=== PATIENT | female | born 1980 | race Two or more races ===

== ENCOUNTER → 2017-11-17 | Outpatient (CLI) | payer OTHER ==
[2017-11-17 09:30] LABS: ESTRADIOL 155.7 PG/ML
[2017-11-17 09:30] LABS: PROGESTERONE 59.1 NG/ML
== END ==
LOC: M LAB 08:20
DX: N97.9 Female infertility, unspecified (principal)

== ENCOUNTER → 2017-11-24 | Outpatient (CLI) | payer OTHER ==
[2017-11-24 09:25] LABS: HCG, SERUM QUANTITATIVE < 1.0 MIU/ML
[2017-11-24 09:36] LABS: PROGESTERONE 20.5 NG/ML
== END ==
LOC: M LAB 08:12
DX: Z31.41 Encounter for fertility testing (principal)
CPT/HCPCS: 84702

== ENCOUNTER → 2017-12-30 | Outpatient (CLI) | payer OTHER ==
[2017-12-30 09:55] LABS: PROGESTERONE < 0.2 NG/ML
[2017-12-30 09:56] LABS: ESTRADIOL 247.8 PG/ML; LUTEINIZING HORMONE 2.3 mIU/mL
== END ==
LOC: M RAD 08:26
DX: N97.9 Female infertility, unspecified (principal)

== ENCOUNTER → 2018-01-04 | Outpatient (CLI) | payer OTHER ==
[2018-01-04 10:56] LABS: PROGESTERONE 0.3 NG/ML
[2018-01-04 10:56] LABS: LUTEINIZING HORMONE 0.8 mIU/mL
[2018-01-04 10:58] LABS: ESTRADIOL 1059.2 PG/ML
== END ==
LOC: M LAB 07:15
DX: N97.9 Female infertility, unspecified (principal)

== ENCOUNTER → 2018-01-13 | Outpatient (CLI) | payer OTHER ==
[2018-01-13 10:56] LABS: ESTRADIOL 511.2 PG/ML; LUTEINIZING HORMONE 1.4 mIU/mL
[2018-01-13 11:43] LABS: PROGESTERONE 80.3 NG/ML
== END ==
LOC: M LAB 07:48
DX: E28.9 Ovarian dysfunction, unspecified (principal)
CPT/HCPCS: 83002

== ENCOUNTER → 2018-01-20 | Outpatient (CLI) | payer OTHER ==
[2018-01-20 09:43] LABS: LUTEINIZING HORMONE 5.3 mIU/mL
[2018-01-20 09:45] LABS: ESTRADIOL 32.1 PG/ML
[2018-01-20 13:47] LABS: HCG, SERUM QUANTITATIVE < 1.0 MIU/ML
== END ==
LOC: M LAB 08:48
DX: E28.9 Ovarian dysfunction, unspecified (principal)

== ENCOUNTER → 2018-02-23 | Outpatient (CLI) | payer OTHER ==
[2018-02-23 10:35] LABS: ESTRADIOL 39.9 PG/ML; LUTEINIZING HORMONE 5.9 mIU/mL
[2018-02-23 10:35] LABS: PROGESTERONE 0.4 NG/ML
[2018-02-23 10:36] LABS: FOLLICLE STIMULATING HORMONE 14.7 mIU/mL
[2018-02-23 10:37] LABS: HCG, SERUM QUANTITATIVE < 1.0 MIU/ML; THYROID STIMULATING HORMONE 0.525 uIU/ML (0.358-3.740)
== END ==
LOC: M LAB 09:40
DX: E28.9 Ovarian dysfunction, unspecified (principal)
CPT/HCPCS: 83001

== ENCOUNTER → 2018-02-27 | Outpatient (CLI) | payer OTHER ==
[2018-02-27 11:31] LABS: PROGESTERONE < 0.2 NG/ML
[2018-02-27 11:32] LABS: ESTRADIOL 214.6 PG/ML
== END ==
LOC: M LAB 10:22
DX: E28.9 Ovarian dysfunction, unspecified (principal)
CPT/HCPCS: 83002

== ENCOUNTER → 2018-03-01 | Outpatient (CLI) | payer OTHER ==
[2018-03-01 09:55] LABS: PROGESTERONE < 0.2 NG/ML
[2018-03-01 09:55] LABS: ESTRADIOL 401.2 PG/ML; LUTEINIZING HORMONE 2.4 mIU/mL
== END ==
LOC: M LAB 08:16
DX: E28.9 Ovarian dysfunction, unspecified (principal)
CPT/HCPCS: 83002

== ENCOUNTER → 2018-03-03 | Outpatient (CLI) | payer OTHER ==
[2018-03-03 08:24] LABS: PROGESTERONE < 0.2 NG/ML
[2018-03-03 08:25] LABS: LUTEINIZING HORMONE 2.5 mIU/mL
[2018-03-03 08:26] LABS: ESTRADIOL 866.7 PG/ML
== END ==
LOC: M RAD 07:01
DX: E28.9 Ovarian dysfunction, unspecified (principal)

== ENCOUNTER → 2018-03-13 | Outpatient (CLI) | payer OTHER ==
[2018-03-13 09:40] LABS: THYROID STIMULATING HORMONE 0.911 uIU/ML (0.358-3.740)
[2018-03-13 10:51] LABS: PROGESTERONE 61.6 NG/ML
== END ==
LOC: M LAB 08:34
DX: E28.9 Ovarian dysfunction, unspecified (principal)
CPT/HCPCS: 84443

== ENCOUNTER → 2018-03-20 | Outpatient (CLI) | payer OTHER ==
[2018-03-20 09:37] LABS: HCG, SERUM QUANTITATIVE < 1.0 MIU/ML
[2018-03-20 09:45] LABS: PROGESTERONE 12.7 NG/ML
== END ==
LOC: M LAB 08:43
DX: Z32.00 Encounter for pregnancy test, result unknown (principal)
CPT/HCPCS: 84702

== ENCOUNTER → 2018-05-22 | Outpatient (CLI) | payer OTHER ==
[2018-05-22 11:31] LABS: PROGESTERONE < 0.2 NG/ML
[2018-05-22 11:32] LABS: ESTRADIOL 174.5 PG/ML
== END ==
LOC: M LAB 07:22
DX: E28.9 Ovarian dysfunction, unspecified (principal)
CPT/HCPCS: 83002

== ENCOUNTER → 2018-05-24 | Outpatient (CLI) | payer OTHER ==
[2018-05-24 11:28] LABS: PROGESTERONE < 0.2 NG/ML
[2018-05-24 11:29] LABS: ESTRADIOL 366.4 PG/ML; LUTEINIZING HORMONE 1.4 mIU/mL
== END ==
LOC: M LAB 07:33
DX: E28.9 Ovarian dysfunction, unspecified (principal)
CPT/HCPCS: 83002

== ENCOUNTER → 2018-05-26 | Outpatient (CLI) | payer OTHER ==
[2018-05-26 09:29] LABS: PROGESTERONE < 0.2 NG/ML
[2018-05-26 09:29] LABS: ESTRADIOL 663.1 PG/ML
== END ==
LOC: M LAB 08:45
DX: E28.9 Ovarian dysfunction, unspecified (principal)
CPT/HCPCS: 83002

== ENCOUNTER → 2018-06-07 | Outpatient (CLI) | payer OTHER ==
[2018-06-07 09:53] LABS: ESTRADIOL 296.8 PG/ML
[2018-06-07 10:31] LABS: PROGESTERONE 75.4 NG/ML
== END ==
LOC: M LAB 08:37
DX: E28.9 Ovarian dysfunction, unspecified (principal)
CPT/HCPCS: 83002

== ENCOUNTER → 2018-06-13 | Outpatient (CLI) | payer OTHER ==
[2018-06-13 09:33] LABS: HCG, SERUM QUANTITATIVE < 1.0 MIU/ML
[2018-06-13 09:36] LABS: PROGESTERONE 53.5 NG/ML
== END ==
LOC: M LAB 08:19
DX: E28.9 Ovarian dysfunction, unspecified (principal)
CPT/HCPCS: 84702

== ENCOUNTER → 2022-07-23 | Outpatient (CLI) | payer OTHER ==
[~2022-07-23] MED LIST: E-Z-GAS II EFFERVESCENT PACKET (SODIUM BICARB./CITRIC ACID/SIMETHICONE) As Ordered ONE; E-Z-HD 98% w/w 340GM SUSP BTL As Ordered ONE; E-Z-PAQUE 96% w/w SUSP 176GM BTL As Ordered ONE
== END ==
LOC: M RAD 08:30
PROVIDERS: ATTEND Family Medicine
DX: R13.12 Dysphagia, oropharyngeal phase (principal)

== ENCOUNTER → 2023-07-15 | Outpatient (CLI) | payer OTHER ==
[2023-07-15 14:11] LABS: HEMATOCRIT 37.7 % (36.0-47.0); HEMOGLOBIN 12.6 g/dl (12.0-15.5); MEAN CORPUSCULAR HEMOGLOBIN 30.7 pg (27.0-33.0); MEAN CORPUSCULAR HGB CONC 33.4 g/dl (32.0-36.5); PLATELET COUNT, AUTOMATED 226 10^3/uL (150-450); WHITE BLOOD COUNT 7.1 10^3/uL (4.0-10.0)
[2023-07-15 14:38] LABS: CALCIUM LEVEL 8.9 MG/DL (8.5-10.1); CARBON DIOXIDE LEVEL 28 MMOL/L (20-31); CHLORIDE LEVEL 106 MMOL/L (98-107); GLUCOSE, FASTING 87 MG/DL (60-100); POTASSIUM SERUM 3.9 MMOL/L (3.5-5.1); SODIUM LEVEL 140 MMOL/L (136-145)
[2023-07-15 14:40] LABS: FREE T4 1.31 NG/DL (0.89-1.76); THYROID STIMULATING HORMONE 0.676 uIU/ML (0.55-4.78)
[2023-07-15 14:41] LABS: ALKALINE PHOSPHATASE 89 U/L (46-116); ALT/SGPT 19 U/L (7.0-40); AST/SGOT 11 U/L (<34); BILIRUBIN,TOTAL 0.4 MG/DL (0.3-1.2); BLOOD UREA NITROGEN 13 MG/DL (9-23); CREATININE FOR GFR 0.72 MG/DL (0.55-1.30); GLOMERULAR FILTRATION RATE > 60.0 (>58); IRON (FE) 35 UG/DL (50-170); TOTAL PROTEIN 7.6 G/DL (5.7-8.2)
[2023-07-15 14:43] LABS: VITAMIN B12 LEVEL 491 PG/ML (211-911)
[2023-07-15 15:09] LABS: PERCENT SATURATION 10.1 % (13.2-45.0); TOTAL IRON BINDING CAPACITY 346 UG/DL (250-425)
== END ==
LOC: M WUC 10:26
PROVIDERS: ATTEND Student in an Organized Health Care Education/Training Program
DX: R42 Dizziness and giddiness (principal)

== ENCOUNTER 2025-07-17 07:23 | Emergency (ER) | payer OTHER ==
[~2025-07-17] VITALS: Ht 167.6 cm; Wt 88.5 kg
[2025-07-17] MEDS ORDERED: FLUO40CA PO (07:31)
[2025-07-17] MEDS ORDERED: VITA200016 PO (07:31)
[2025-07-17] MEDS ORDERED: BUSP10TA PO (07:31)
[2025-07-17] MEDS ORDERED: AMPH1CAP16 PO (07:31)
[2025-07-17 08:14] LABS: BASO # 0.0 10^3/uL (0.0-0.2); BASO % 0.3 % (0.0-1.0); EOS # 0.1 10^3/uL (0.0-0.5); EOS % 1.4 % (0.0-3.0); LYMPH # 2.0 10^3/uL (1.5-5.0); LYMPH % 28.8 % (24.0-44.0); MONO # 0.4 10^3/uL (0.0-0.8); MONO % 6.3 % (2.0-8.0); NEUTROPHILS # 4.4 10^3/uL (1.5-8.5); NEUTROPHILS % 62.9 % (36.0-66.0); PLATELET COUNT, AUTOMATED 266 10^3/uL (150-450)
[2025-07-17 08:41] LABS: ALT/SGPT 12 U/L (7.0-40); AST/SGOT 17 U/L (<34); CALCIUM LEVEL 8.8 MG/DL (8.5-10.1); CARBON DIOXIDE LEVEL 28 MMOL/L (20-31); CHLORIDE LEVEL 104 MMOL/L (98-107); CPK CREATINE PHOSPHOKINASE 120 U/L (34-145); CREATININE FOR GFR 0.76 MG/DL (0.55-1.30); GLOMERULAR FILTRATION RATE > 90.0 (>58); POTASSIUM SERUM 3.9 MMOL/L (3.5-5.1); SODIUM LEVEL 138 MMOL/L (136-145)
[2025-07-17 08:42] LABS: CK-MB VALUE MASS 1.5 NG/ML (<3.6); MB/CK RELATIVE INDEX 1.25 (< OR =4)
[2025-07-17 08:46] LABS: FREE T4 1.33 NG/DL (0.89-1.76)
[2025-07-17] MEDS ORDERED: HOME MED LIST COMPLETE! XX SCH (09:05)
[2025-07-17 09:21] LABS: CK-MB VALUE MASS 1.4 NG/ML (<3.6)
[2025-07-17 09:22] LABS: CPK CREATINE PHOSPHOKINASE 112.0 U/L (34-145); MB/CK RELATIVE INDEX 1.25 (< OR =4)
[2025-07-17] MEDS ORDERED: OMEP40CA4 PO (09:33)
[2025-07-17 10:02] VITALS: BP 134/86; TEMP 99; O2SAT 100
== END 2025-07-17 10:05 | disposition home or self-care (01) ==
LOC: M ED 07:23
DX: R07.9 Chest pain, unspecified (principal); K21.9 Gastro-esophageal reflux disease without esophagitis; I45.81 Long QT syndrome; F41.9 Anxiety disorder, unspecified; F32.A Depression, unspecified; F17.200 Nicotine dependence, unspecified, uncomplicated; F10.10 Alcohol abuse, uncomplicated; Z79.899 Other long term (current) drug therapy